=== PATIENT | female | born 1980 | race Hispanic/Latino ===

== ENCOUNTER 2020-11-27 08:42 | Outpatient (CLI) | payer OTHER ==
--- NOTE | 2020-11-27 11:05 | ULT ---
Exam: Transabdominal and endovaginal pelvic ultrasound HISTORY:Right adnexal pain COMPARISON: None TECHNIQUE: Transabdominal and endovaginal imaging of the pelvis is performed. Ovaries are interrogate d with grayscale, color flow, Doppler imaging and spectral wave form analysis FINDINGS: Uterus: Retroflexed uterus. No myometrial masses. Uterus measurin.8 x 6.6 x 5.6 cm. Endometrium: Homogeneous echotexture. Endometrium diameter: 0.6 cm. Free fluid: None Right ovary: Normal echotexture Right ovary measurement: 1.8 x 2.9 x 1.4 cm Left ovary: Normal echotexture. Left ovary measurements: 1.5 x 3.1 x 1.5 cm Ovarian Doppler: There is vascular flow to the left and right ovary. IMPRESSION: No acute abnormality in the pelvis.
== END 2020-11-27 08:43 | disposition home or self-care (01) ==
LOC: BICULT 08:42 → EDBD 08:42 → BICULT 08:43
PROVIDERS: ATTEND Family Medicine
DX: Z87.42 Personal history of other diseases of the female genital tract (principal)
CPT/HCPCS: 76856